=== PATIENT | male | born 1970 | race Caucasian/White ===

== ENCOUNTER 2017-07-29 18:44 | Emergency (ER) | payer OTHER ==
[~2017-07-29] VITALS: Ht 177.8 cm; Wt 166.4 kg
[2017-07-29] MEDS ORDERED: METF500T4 PO (19:08)
[2017-07-29] MEDS ORDERED: OMEP20TA62 PO (19:08)
[2017-07-29] MEDS ORDERED: LISI-170 PO (19:08)
[2017-07-29] MEDS ORDERED: FAMOTIDINE 20 MG/2 ML ONE (19:30)
[2017-07-29] MEDS ORDERED: FAMOTIDINE 20 MG/2 ML IVP ONE (19:30)
[2017-07-29] MEDS ORDERED: ONDANSETRON 2MG/ML, 2ML IVPush ONE (19:30)
[2017-07-29] MEDS ORDERED: SODIUM CHLORIDE 0.9% 1,000ML IVBOLUS ONE (19:30)
[2017-07-29] MEDS ORDERED: ONDANSETRON 2MG/ML, 2ML ONE (19:30)
[2017-07-29] MEDS ORDERED: SODIUM CHLORIDE FLUSH 10ML SYR IVF ONE (19:30)
[2017-07-29 19:38] LABS: HEMATOCRIT 38.1 % (39.2-51.8); HEMOGLOBIN 12.7 g/dL (13.7-18.0); WHITE BLOOD COUNT 15.3 x10^3/uL (3.4-10)
[2017-07-29 19:50] LABS: ASPARTATE AMINO TRANSFERASE 29 U/L (15-37); BLOOD UREA NITROGEN 19 mg/dL (7-18)
[2017-07-29 19:55] LABS: IS PT STATUS REG ER OR PRE ER? YES
[2017-07-29] MEDS ORDERED: PROMETHAZINE 25 MG/ML, 1ML ONE (20:12)
[2017-07-29] MEDS ORDERED: PROMETHAZINE 25 MG/ML, 1ML IV ONE (20:30)
[2017-07-29] MEDS ORDERED: ZIPRASIDONE 20 MG INJ IM ONE ×2 (20:52→21:00)
[2017-07-29] MEDS ORDERED: LABETALOL 5MG/ML, 20ML ONE (21:56)
[2017-07-29] MEDS ORDERED: PROMETHAZINE 25 MG/ML, 1ML IM ONE (22:00)
[2017-07-29] MEDS ORDERED: LABETALOL 5MG/ML, 20ML IVPush ONE (22:00)
[2017-07-29 22:47] VITALS: BP 174/94
== END 2017-07-29 22:50 | disposition home or self-care (01) ==
LOC: ED 20:24
DX: R19.7 Diarrhea, unspecified (principal); R11.2 Nausea with vomiting, unspecified; R10.84 Generalized abdominal pain; D72.829 Elevated white blood cell count, unspecified; I10 Essential (primary) hypertension; E11.65 Type 2 diabetes mellitus with hyperglycemia
CPT/HCPCS: 36415; 71010; 74020; 80053; 81001; 83690; 84484; 85025; 87086; 93005; 96361; 96372; 96374; 96375; 99285; J2405; J2550; J3486; J7030; S0028